=== PATIENT | male | born 1995 | race Caucasian/White ===

== ENCOUNTER 2024-06-17 16:07 | Emergency (ER) | payer MEDICAID ==
[~2024-06-17] VITALS: Ht 172.7 cm; Wt 77.1 kg
[2024-06-17 16:29] VITALS: O2SAT 100
[2024-06-17 20:53] VITALS: BP 130/78; PULSE 61; RESP 16; TEMP 36.66960; O2SAT 100
== END 2024-06-17 20:56 | disposition home or self-care (01) ==
LOC: ER 16:07
DX: Z00.00 Encounter for general adult medical examination without abnormal findings (principal)
CPT/HCPCS: 71045; 99283